=== PATIENT | male | born 1975 | race Caucasian/White ===

== ENCOUNTER 2018-11-27 19:19 | Emergency (ER) | payer MEDICAID ==
[~2018-11-27] VITALS: Ht 175.3 cm; Wt 78.0 kg
[2018-11-27 19:20] VITALS: BP 148/92
[2018-11-27 21:04] LABS: CHLORIDE 96 mEq/L (98-107)
[2018-11-27 21:08] LABS: ETHANOL BLOOD < 10 mg/dL; HEMOGLOBIN. 16.5 g/dL (14.0-18.0); MEAN CORPUSCULAR HEMOGLOBIN 31.7 pg (28.0-32.0); MEAN CORPUSCULAR VOLUME 88.4 fL (80.0-94.0); MEAN PLATELET VOLUME 7.9 fl (7.4-10.4); PLATELET 261 x1000/uL (130-400); RED CELL DISTRIBUTION WIDTH 12.9 % (11.6-14.6)
[2018-11-27 21:31] LABS: CLARITY URINE CLEAR (CLEAR); COLOR URINE YELLOW (YELLOW); KETONES URINE NEGATIVE (NEGATIVE); LEUKOCYTE ESTERASE URINE NEGATIVE (NEGATIVE); NITRITE URINE NEGATIVE (NEGATIVE); OCCULT BLOOD URINE TRACE (NEGATIVE); PROTEIN URINE NEGATIVE (NEGATIVE); SPECIFIC GRAVITY URINE 1.015 (1.005-1.030); UROBILINOGEN URINE 0.2 E.U./dL (0.2-1.0)
[2018-11-27 21:34] LABS: PLATELET ESTIMATE NORMAL
[2018-11-27 21:40] LABS: *BARBITURATES SCREEN URINE NEGATIVE (NEGATIVE); *BENZODIAZEPINES SCREEN URINE NEGATIVE (NEGATIVE); *COCAINE SCREEN URINE NEGATIVE (NEGATIVE); METHADONE URINE SCREEN NEGATIVE (NEGATIVE); OPIATES URINE SCREEN NEGATIVE (NEGATIVE); PHENCYCLIDINE URINE SCREEN NEGATIVE (NEGATIVE)
[2018-11-27 21:41] LABS: *AMPHETAMINES SCREEN URINE NEGATIVE (NEGATIVE); CANNABINOID URINE SCREEN NEGATIVE (NEGATIVE)
== END 2018-11-27 22:47 | disposition left against medical advice (07) ==
LOC: ER 20:50
DX: R25.1 Tremor, unspecified (principal); R42 Dizziness and giddiness; Z88.0 Allergy status to penicillin
CPT/HCPCS: 36415; 71045; 80305; 80320; 83880; 84484; 99284; G0480

== ENCOUNTER 2019-01-02 14:34 | Inpatient (IN) | payer MEDICAID, OTHER ==
[~2019-01-02] VITALS: Ht 172.7 cm; Wt 79.4 kg
[2019-01-02] MEDS ORDERED: LORAZEPAM 2MG/ML CPJ IV STA (15:36)
[2019-01-02] MEDS ORDERED: SODIUM CHLORIDE 0.9% 1,000 ML IV ONE (15:36)
[2019-01-02 15:55] LABS: HEMATOCRIT. 42.1 % (42.0-52.0); HEMOGLOBIN. 15.1 g/dL (14.0-18.0); MEAN CORPUSCULAR HEMOGLOBIN 32.2 pg (28.0-32.0); MEAN CORPUSCULAR VOLUME 90.2 fL (80.0-94.0); MEAN PLATELET VOLUME 7.9 fl (7.4-10.4); PLATELET 253 x1000/uL (130-400); RED BLOOD CELL COUNT 4.67 mill/uL (4.7-6.1); RED CELL DISTRIBUTION WIDTH 12.9 % (11.6-14.6)
[2019-01-02 15:59] LABS: CHLORIDE 99 mEq/L (98-107)
[2019-01-02 16:03] LABS: ETHANOL BLOOD < 10 mg/dL
[2019-01-02 16:12] LABS: CLARITY URINE CLEAR (CLEAR); COLOR URINE YELLOW (YELLOW); KETONES URINE NEGATIVE (NEGATIVE); LEUKOCYTE ESTERASE URINE NEGATIVE (NEGATIVE); NITRITE URINE NEGATIVE (NEGATIVE); OCCULT BLOOD URINE NEGATIVE (NEGATIVE); PH URINE 7.5 (4.5-8.0); PROTEIN URINE NEGATIVE (NEGATIVE); SPECIFIC GRAVITY URINE 1.013 (1.005-1.030)
[2019-01-02 16:13] LABS: PLATELET ESTIMATE NORMAL
[2019-01-02 16:25] LABS: *AMPHETAMINES SCREEN URINE NEGATIVE (NEGATIVE); *BARBITURATES SCREEN URINE NEGATIVE (NEGATIVE); *BENZODIAZEPINES SCREEN URINE NEGATIVE (NEGATIVE); *COCAINE SCREEN URINE NEGATIVE (NEGATIVE)
[2019-01-02 16:26] LABS: CANNABINOID URINE SCREEN NEGATIVE (NEGATIVE); METHADONE URINE SCREEN NEGATIVE (NEGATIVE); OPIATES URINE SCREEN NEGATIVE (NEGATIVE); PHENCYCLIDINE URINE SCREEN NEGATIVE (NEGATIVE)
[2019-01-02] MEDS ORDERED: LORAZEPAM 2MG/ML CPJ IM ONE ×2 (17:30→19:00)
[2019-01-02] MEDS ORDERED: ZIPRASIDONE MESYLATE 20MG/VIAL IM ONE (17:45)
[2019-01-02] MEDS ORDERED: DIPHENHYDRAMINE 50MG/ML VIAL IM ONE ×2 (17:45→19:00)
[2019-01-02] MEDS ORDERED: HALOPERIDOL 5MG TABLET PO ONE (19:00)
[2019-01-02] MEDS ORDERED: HALOPERIDOL LACTATE 5MG/ML VIAL IM ONE (19:15)
[2019-01-02] MEDS ORDERED: DIPHENHYDRAMINE 50MG/ML VIAL IV ONE (19:30)
[2019-01-02] MEDS ORDERED: LORAZEPAM 2MG/ML CPJ IV ONE ×4 (19:30→21:45)
[2019-01-03] MEDS ORDERED: NALOXONE HCL 1 MG/ML 2ML VIAL IV ONE (11:00)
[2019-01-03 17:24] VITALS: BP 151/86
[2019-01-03 18:00] VITALS: BP 151/86
[2019-01-03] MEDS ORDERED: LORAZEPAM 2MG/ML CPJ IV PRN (18:30)
[2019-01-03] MEDS: HALOPERIDOL LACTATE 5MG/ML VIAL IM PRN (18:34)
[2019-01-03 20:00] VITALS: BP 145/90
[2019-01-04] VITALS: BP 154/100
[2019-01-04] MEDS: HALOPERIDOL LACTATE 5MG/ML VIAL IM PRN (01:33)
[2019-01-04 04:00] VITALS: BP 150/98
[2019-01-04] MEDS: DEXT 5%/0.45% NACL 1000ML 1,000 ML IV SCH ×2 (06:47→13:10)
[2019-01-04 06:50] LABS: BASOPHILS % 0.3 % (0.0-2.0); EOSINOPHILS % 1.5 % (0.0-5.0); HEMATOCRIT. 45.5 % (42.0-52.0); HEMOGLOBIN. 16.2 g/dL (14.0-18.0); LYMPHOCYTES % 16.2 % (20.0-50.0); MEAN CORPUSCULAR VOLUME 90.1 fL (80.0-94.0); MEAN PLATELET VOLUME 8.3 fl (7.4-10.4); MONOCYTES % 5.9 % (2.0-8.0); NEUTROPHILS % 76.1 % (40.0-76.0); PLATELET 247 x1000/uL (130-400); RED BLOOD CELL COUNT 5.05 mill/uL (4.7-6.1); RED CELL DISTRIBUTION WIDTH 12.7 % (11.6-14.6)
[2019-01-04 07:08] LABS: CHLORIDE 99 mEq/L (98-107)
[2019-01-04 08:00] VITALS: BP 138/87
[2019-01-04 12:00] VITALS: BP 145/97
[2019-01-04] MEDS ORDERED: POTASSIUM CHLORIDE INJ 40 MEQ in DEXT 5% WATER 500 ML IV SCH (12:00)
[2019-01-04] MEDS ORDERED: POTASSIUM CHLORIDE 20MEQ TABLET SR PO NR ×2 (14:45→22:15)
[2019-01-04 16:00] VITALS: BP 147/96
[2019-01-04] MEDS: LEVETIRACETAM 500 MG in SODIUM CHLORIDE 0.9% 100 ML IV SCH ×2 (16:07→23:22)
[2019-01-04 20:00] VITALS: BP 127/77
[2019-01-04] MEDS ORDERED: TEMAZEPAM 15MG CAPSULE PO PRN (22:15)
[2019-01-04 23:54] LABS: CHLORIDE 103 mEq/L (98-107)
[2019-01-05] VITALS: BP 135/94
[2019-01-05 04:00] VITALS: BP 123/82
[2019-01-05 08:00] VITALS: BP 136/87
[2019-01-05] MEDS: LEVETIRACETAM 500 MG in SODIUM CHLORIDE 0.9% 100 ML IV SCH (08:50)
[2019-01-05 12:00] VITALS: BP 118/78
[2019-01-05 16:00] VITALS: BP 145/66
[2019-01-05 16:41] VITALS: BP 145/96
[2019-01-05] MEDS ORDERED: ATENOLOL 50 MG TABLET PO NR (16:45)
== END 2019-01-05 17:29 | disposition home or self-care (01) | DRG 53 ==
LOC: ER 14:34 → 6EST 01-03 11:27
PROVIDERS: ADMIT Internal Medicine; ATTEND Internal Medicine
DX: G40.909 Epilepsy, unspecified, not intractable, without status epilepticus (principal); F23 Brief psychotic disorder; I10 Essential (primary) hypertension; Z88.0 Allergy status to penicillin
CPT/HCPCS: 36415; 73080; 73200; 73590; 80048; 80305; 80307; 80320; 80329; 82140; 83735; 96372; 96374; 97116; 97162; 99285; J1200; J1630; J1953; J2060; J2310; J3480; J3486; J7030; J7040; J7050; J7060; G0480

== ENCOUNTER 2019-02-13 14:22 | Emergency (ER) | payer SELFPAY ==
[~2019-02-13] VITALS: Ht 167.6 cm; Wt 75.0 kg
[2019-02-13 14:26] VITALS: BP 150/106
[2019-02-13] MEDS ORDERED: SODIUM CHLORIDE 0.9% 1,000 ML IV ONE (15:22)
[2019-02-13] MEDS ORDERED: TETANUS, DIPHTHERIA, PERTUSSIS VAC/PF 0.5ML (>7YR OLD) IM ONE (15:30)
[2019-02-13] MEDS ORDERED: LIDOCAINE 1%/EPI 1:100,000 10 ML VIAL IJ ONE (15:30)
[2019-02-13 15:44] LABS: HEMATOCRIT. 42.1 % (42.0-52.0); HEMOGLOBIN. 14.9 g/dL (14.0-18.0); MEAN CORPUSCULAR VOLUME 90.5 fL (80.0-94.0); MEAN PLATELET VOLUME 8.2 fl (7.4-10.4); PLATELET 222 x1000/uL (130-400); RED BLOOD CELL COUNT 4.66 mill/uL (4.7-6.1)
[2019-02-13 15:49] LABS: CHLORIDE 103 mEq/L (98-107); PROTHROMBIN TIME 9.8 sec (9.6-11.0)
[2019-02-13 15:53] LABS: ETHANOL BLOOD < 10 mg/dL
[2019-02-13 16:12] LABS: CARBAMAZEPINE < 0.5 ug/mL (4-12); PHENOBARBITAL < 2.1 ug/mL (15.0-40.0)
[2019-02-13 16:55] LABS: PLATELET ESTIMATE NORMAL
[2019-02-13] MEDS ORDERED: LEVETIRACETAM 500MG PREMIX 100 ML IV ONE (17:00)
[2019-02-13] MEDS ORDERED: BACITRACIN ZINC OINT UDPKT TOP ONE (17:45)
[2019-02-13 18:23] LABS: *COCAINE SCREEN URINE NEGATIVE (NEGATIVE); METHADONE URINE SCREEN NEGATIVE (NEGATIVE); OPIATES URINE SCREEN NEGATIVE (NEGATIVE); PHENCYCLIDINE URINE SCREEN NEGATIVE (NEGATIVE)
[2019-02-13 18:25] LABS: *AMPHETAMINES SCREEN URINE NEGATIVE (NEGATIVE); *BARBITURATES SCREEN URINE NEGATIVE (NEGATIVE); *BENZODIAZEPINES SCREEN URINE NEGATIVE (NEGATIVE); CANNABINOID URINE SCREEN NEGATIVE (NEGATIVE)
== END 2019-02-13 20:56 | disposition home or self-care (01) ==
LOC: ER 14:22
DX: G40.909 Epilepsy, unspecified, not intractable, without status epilepticus (principal); S01.01XA Laceration without foreign body of scalp, initial encounter; W01.10XA Fall on same level from slipping, tripping and stumbling with subsequent striking against unspecified object, initial encounter; Y04.0XXA Assault by unarmed brawl or fight, initial encounter; Y93.89 Activity, other specified; Y92.512 Supermarket, store or market as the place of occurrence of the external cause; R03.0 Elevated blood-pressure reading, without diagnosis of hypertension; Z23 Encounter for immunization
CPT/HCPCS: 36415; 70450; 80053; 80156; 80165; 80184; 80185; 80305; 80320; 85025; 85610; 90471; 90715; 99284; J3490; J7030; G0480

== ENCOUNTER 2019-03-04 18:46 | Emergency (ER) | payer SELFPAY ==
[~2019-03-04] VITALS: Ht 172.7 cm; Wt 86.0 kg
[2019-03-04] MEDS ORDERED: LORAZEPAM 1MG TABLET PO ONE (23:45)
[2019-03-05 00:11] LABS: CLARITY URINE CLEAR (CLEAR); COLOR URINE YELLOW (YELLOW); KETONES URINE NEGATIVE (NEGATIVE); LEUKOCYTE ESTERASE URINE NEGATIVE (NEGATIVE); NITRITE URINE NEGATIVE (NEGATIVE); OCCULT BLOOD URINE NEGATIVE (NEGATIVE); PH URINE 5.5 (4.5-8.0); PROTEIN URINE NEGATIVE (NEGATIVE); SPECIFIC GRAVITY URINE 1.023 (1.005-1.030); UROBILINOGEN URINE 0.2 E.U./dL (0.2-1.0)
[2019-03-05 00:28] LABS: *AMPHETAMINES SCREEN URINE NEGATIVE (NEGATIVE); *BARBITURATES SCREEN URINE NEGATIVE (NEGATIVE); *BENZODIAZEPINES SCREEN URINE NEGATIVE (NEGATIVE); *COCAINE SCREEN URINE NEGATIVE (NEGATIVE)
[2019-03-05 00:29] LABS: CANNABINOID URINE SCREEN NEGATIVE (NEGATIVE); METHADONE URINE SCREEN NEGATIVE (NEGATIVE); OPIATES URINE SCREEN NEGATIVE (NEGATIVE); PHENCYCLIDINE URINE SCREEN NEGATIVE (NEGATIVE)
[2019-03-05 00:41] LABS: HEMATOCRIT. 44.9 % (42.0-52.0); HEMOGLOBIN. 15.7 g/dL (14.0-18.0); MEAN CORPUSCULAR HEMOGLOBIN 31.6 pg (28.0-32.0); MEAN CORPUSCULAR VOLUME 90.3 fL (80.0-94.0); MEAN PLATELET VOLUME 7.5 fl (7.4-10.4); PLATELET 266 x1000/uL (130-400); RED BLOOD CELL COUNT 4.97 mill/uL (4.7-6.1); RED CELL DISTRIBUTION WIDTH 13.2 % (11.6-14.6)
[2019-03-05 00:48] LABS: CHLORIDE 102 mEq/L (98-107)
[2019-03-05 00:51] LABS: ETHANOL BLOOD < 10 mg/dL
[2019-03-05 01:58] VITALS: BP 150/81
[2019-03-05 02:01] LABS: ATYPICAL LYMPHOCYTES 2; PLATELET ESTIMATE NORMAL
== END 2019-03-05 02:15 | disposition home or self-care (01) ==
LOC: ER 18:46
DX: R07.9 Chest pain, unspecified (principal); Z88.0 Allergy status to penicillin
CPT/HCPCS: 36415; 71045; 80305; 80320; 81003; 93005; 99284; G0480

== ENCOUNTER 2019-03-08 15:23 | Inpatient (IN) | payer SELFPAY ==
[~2019-03-08] VITALS: Ht 167.6 cm; Wt 94.4 kg
[2019-03-08] MEDS ORDERED: FOLIC ACID 1 MG, THIAMINE HCL 100 MG, MVI, ADULT NO.1 10 ML in DEXTROSE 5% WATER 1,000 ML IV ONE ×4 (17:00)
[2019-03-08] MEDS ORDERED: DIPHENHYDRAMINE 50MG/ML VIAL IM ONE ×2 (17:00→21:15)
[2019-03-08] MEDS ORDERED: OLANZAPINE 10 MG/VIAL IM ONE (17:00)
[2019-03-08] MEDS ORDERED: LORAZEPAM 2MG/ML CPJ IM PRN (17:45)
[2019-03-08 18:22] LABS: *AMPHETAMINES SCREEN URINE NEGATIVE (NEGATIVE); *BARBITURATES SCREEN URINE NEGATIVE (NEGATIVE); *BENZODIAZEPINES SCREEN URINE NEGATIVE (NEGATIVE); METHADONE URINE SCREEN NEGATIVE (NEGATIVE)
[2019-03-08 18:23] LABS: *COCAINE SCREEN URINE NEGATIVE (NEGATIVE); CANNABINOID URINE SCREEN NEGATIVE (NEGATIVE); OPIATES URINE SCREEN NEGATIVE (NEGATIVE); PHENCYCLIDINE URINE SCREEN NEGATIVE (NEGATIVE)
[2019-03-08 18:27] LABS: BASOPHILS % 0.8 % (0.0-2.0); EOSINOPHILS % 0.3 % (0.0-5.0); HEMATOCRIT. 39.8 % (42.0-52.0); HEMOGLOBIN. 14.1 g/dL (14.0-18.0); LYMPHOCYTES % 19.3 % (20.0-50.0); MEAN CORPUSCULAR VOLUME 90.1 fL (80.0-94.0); MEAN PLATELET VOLUME 7.6 fl (7.4-10.4); NEUTROPHILS % 70.6 % (40.0-76.0); PLATELET 229 x1000/uL (130-400); RED BLOOD CELL COUNT 4.42 mill/uL (4.7-6.1); RED CELL DISTRIBUTION WIDTH 13.2 % (11.6-14.6)
[2019-03-08 18:30] LABS: CHLORIDE 104 mEq/L (98-107)
[2019-03-08 18:34] LABS: ETHANOL BLOOD < 10 mg/dL
[2019-03-08] MEDS ORDERED: KCL 20MEQ/100ML PREMIX 100 ML IV NR (19:00)
[2019-03-08] MEDS ORDERED: LORAZEPAM 2MG/ML CPJ IM ONE ×2 (20:00→23:15)
[2019-03-08] MEDS ORDERED: POTASSIUM CHLORIDE INJ 30 MEQ in DEXT 5%/0.9% NACL 1,000 ML IV ONE (21:00)
[2019-03-08] MEDS ORDERED: HALOPERIDOL LACTATE 5MG/ML VIAL IM ONE (21:15)
[2019-03-08] MEDS ORDERED: LORAZEPAM 2MG/ML CPJ IV ONE (22:30)
[2019-03-09] VITALS (41 sets, daily range): BP systolic 135–174; BP diastolic 77–106
[2019-03-09] MEDS ORDERED: OLANZAPINE 10 MG/VIAL IM ONE (01:45)
[2019-03-09] MEDS ORDERED: LORAZEPAM 2MG/ML CPJ IM ONE (01:45)
[2019-03-09] MEDS ORDERED: DIPHENHYDRAMINE 50MG/ML VIAL IV ONE (02:35)
[2019-03-09] MEDS ORDERED: LORAZEPAM 2MG/ML CPJ IV ONE ×2 (02:35→07:50)
[2019-03-09] MEDS ORDERED: HALOPERIDOL LACTATE 5MG/ML VIAL IM ONE ×4 (02:35→08:05)
[2019-03-09] MEDS ORDERED: LORAZEPAM 2MG/ML CPJ ONE ×2 (02:44→08:04)
[2019-03-09] MEDS ORDERED: DIPHENHYDRAMINE 50MG/ML VIAL ONE (02:45)
[2019-03-09] MEDS ORDERED: LORAZEPAM 2MG/ML CPJ IM STA (06:57)
[2019-03-09] MEDS ORDERED: HALOPERIDOL LACTATE 5MG/ML VIAL IM STA (06:57)
[2019-03-09] MEDS ORDERED: LORAZEPAM 2MG/ML CPJ IV PRN (07:45)
[2019-03-09] MEDS ORDERED: DIPHENHYDRAMINE 50MG/ML VIAL IV PRN (07:45)
[2019-03-09] MEDS ORDERED: HALOPERIDOL LACTATE 5MG/ML VIAL IM PRN (07:45)
[2019-03-09 10:05] LABS: BASOPHILS % 0.5 % (0.0-2.0); HEMATOCRIT. 39.5 % (42.0-52.0); HEMOGLOBIN. 14.2 g/dL (14.0-18.0); LYMPHOCYTES % 15.3 % (20.0-50.0); MEAN CORPUSCULAR HEMOGLOBIN 32.6 pg (28.0-32.0); MEAN CORPUSCULAR VOLUME 90.7 fL (80.0-94.0); MEAN PLATELET VOLUME 7.7 fl (7.4-10.4); NEUTROPHILS % 75.2 % (40.0-76.0); PLATELET 215 x1000/uL (130-400); RED BLOOD CELL COUNT 4.35 mill/uL (4.7-6.1)
[2019-03-09 10:11] LABS: CHLORIDE 105 mEq/L (98-107)
[2019-03-09 10:41] LABS: CLARITY URINE CLOUDY (CLEAR); COLOR URINE YELLOW (YELLOW); KETONES URINE TRACE (NEGATIVE); LEUKOCYTE ESTERASE URINE NEGATIVE (NEGATIVE); NITRITE URINE NEGATIVE (NEGATIVE); OCCULT BLOOD URINE NEGATIVE (NEGATIVE); PH URINE 7.5 (4.5-8.0); PROTEIN URINE NEGATIVE (NEGATIVE); SPECIFIC GRAVITY URINE 1.018 (1.005-1.030)
[2019-03-09] MEDS: DEXT 5%/0.45% NACL 1000ML 1,000 ML IV SCH ×2 (10:48→17:23)
[2019-03-09] MEDS ORDERED: POTASSIUM CHLORIDE INJ 40 MEQ in DEXT 5% WATER 230 ML IV NR (12:00)
[2019-03-09 18:14] LABS: HEPATITIS B SURFACE ANTIGEN NEGATIVE
[2019-03-09 18:44] LABS: HEPATITIS A AB IGM NEGATIVE (NEGATIVE)
[2019-03-09] MEDS: DIPHENHYDRAMINE 50MG/ML VIAL IV PRN (21:32)
[2019-03-09] MEDS: HALOPERIDOL LACTATE 5MG/ML VIAL IM PRN (21:33)
[2019-03-09] MEDS: LORAZEPAM 2MG/ML CPJ IV PRN (21:34)
[2019-03-10] VITALS (78 sets, daily range): BP systolic 132–167; BP diastolic 72–101
[2019-03-10] MEDS: LORAZEPAM 2MG/ML CPJ IV PRN ×3 (02:08→21:26)
[2019-03-10] MEDS: DEXT 5%/0.45% NACL 1000ML 1,000 ML IV SCH ×3 (02:12→18:49)
[2019-03-10 05:50] LABS: BASOPHILS % 0.3 % (0.0-2.0); EOSINOPHILS % 0.8 % (0.0-5.0); HEMATOCRIT. 39.9 % (42.0-52.0); HEMOGLOBIN. 13.8 g/dL (14.0-18.0); LYMPHOCYTES % 11.7 % (20.0-50.0); MEAN CORPUSCULAR HEMOGLOBIN 31.6 pg (28.0-32.0); MEAN CORPUSCULAR VOLUME 91.3 fL (80.0-94.0); MEAN PLATELET VOLUME 8.1 fl (7.4-10.4); MONOCYTES % 5.2 % (2.0-8.0); PLATELET 210 x1000/uL (130-400); RED BLOOD CELL COUNT 4.37 mill/uL (4.7-6.1); RED CELL DISTRIBUTION WIDTH 13.1 % (11.6-14.6)
[2019-03-10 05:57] LABS: CHLORIDE 101 mEq/L (98-107)
[2019-03-10] MEDS: HALOPERIDOL LACTATE 5MG/ML VIAL IM PRN (06:11)
[2019-03-10] MEDS: DIPHENHYDRAMINE 50MG/ML VIAL IV PRN (06:11)
[2019-03-10] MEDS ORDERED: POTASSIUM CHLORIDE INJ 40 MEQ in DEXT 5% WATER 250 ML IV SCH (10:00)
[2019-03-10] MEDS: QUETIAPINE FUMARATE 50MG TABLET PO SCH ×2 (15:24→21:09)
[2019-03-10] MEDS: NICOTINE 14MG PATCH TD SCH (15:48)
[2019-03-10] MEDS: AMLODIPINE 5MG TABLET PO SCH (15:48)
[2019-03-10] MEDS: ENOXAPARIN 30MG/0.3ML SYR SUBCUT SCH (21:09)
[2019-03-11] VITALS (25 sets, daily range): BP systolic 123–164; BP diastolic 58–98
[2019-03-11] MEDS: DEXT 5%/0.45% NACL 1000ML 1,000 ML IV SCH ×3 (03:22→18:28)
[2019-03-11 06:35] LABS: BASOPHILS % 0.3 % (0.0-2.0); EOSINOPHILS % 1.7 % (0.0-5.0); HEMATOCRIT. 40.7 % (42.0-52.0); HEMOGLOBIN. 14.3 g/dL (14.0-18.0); LYMPHOCYTES % 10.9 % (20.0-50.0); MEAN CORPUSCULAR HEMOGLOBIN 32.1 pg (28.0-32.0); MEAN CORPUSCULAR VOLUME 91.3 fL (80.0-94.0); MEAN PLATELET VOLUME 8.4 fl (7.4-10.4); MONOCYTES % 6.8 % (2.0-8.0); NEUTROPHILS % 80.3 % (40.0-76.0); PLATELET 187 x1000/uL (130-400); RED BLOOD CELL COUNT 4.46 mill/uL (4.7-6.1); RED CELL DISTRIBUTION WIDTH 13.1 % (11.6-14.6)
[2019-03-11 06:39] LABS: CHLORIDE 101 mEq/L (98-107)
[2019-03-11] MEDS: NICOTINE 14MG PATCH TD SCH (08:17)
[2019-03-11] MEDS: AMLODIPINE 5MG TABLET PO SCH (08:18)
[2019-03-11] MEDS: QUETIAPINE FUMARATE 50MG TABLET PO SCH ×2 (08:18→21:21)
[2019-03-11] MEDS: ENOXAPARIN 30MG/0.3ML SYR SUBCUT SCH ×2 (08:18→21:22)
[2019-03-11] MEDS: LORAZEPAM 2MG/ML CPJ IV PRN ×2 (11:53→21:29)
[2019-03-11] MEDS: HALOPERIDOL LACTATE 5MG/ML VIAL IM PRN (16:34)
[2019-03-11] MEDS: CEFTRIAXONE 1 G PREMIX 50 ML IV SCH (18:28)
[2019-03-12] VITALS: BP 151/81
[2019-03-12] MEDS: HALOPERIDOL LACTATE 5MG/ML VIAL IM PRN ×2 (02:10→23:50)
[2019-03-12] MEDS: DEXT 5%/0.45% NACL 1000ML 1,000 ML IV SCH ×3 (02:45→18:46)
[2019-03-12 04:00] VITALS: BP 125/92
[2019-03-12] MEDS: LORAZEPAM 2MG/ML CPJ IV PRN (04:07)
[2019-03-12] MEDS: DIPHENHYDRAMINE 50MG/ML VIAL IV PRN (04:10)
[2019-03-12 08:00] VITALS: BP 128/55
[2019-03-12] MEDS: NICOTINE 14MG PATCH TD SCH (09:52)
[2019-03-12] MEDS: ENOXAPARIN 30MG/0.3ML SYR SUBCUT SCH ×2 (09:53→21:48)
[2019-03-12] MEDS: QUETIAPINE FUMARATE 50MG TABLET PO SCH ×2 (09:53→21:47)
[2019-03-12] MEDS: AMLODIPINE 5MG TABLET PO SCH (09:53)
[2019-03-12 13:28] LABS: CLARITY URINE CLOUDY (CLEAR); COLOR URINE YELLOW (YELLOW); KETONES URINE NEGATIVE (NEGATIVE); LEUKOCYTE ESTERASE URINE TRACE (NEGATIVE); NITRITE URINE NEGATIVE (NEGATIVE); OCCULT BLOOD URINE NEGATIVE (NEGATIVE); PH URINE 7.5 (4.5-8.0); PROTEIN URINE NEGATIVE (NEGATIVE); SPECIFIC GRAVITY URINE 1.014 (1.005-1.030)
[2019-03-12 17:35] VITALS: BP 148/97
[2019-03-12] MEDS: CEFTRIAXONE 1 G PREMIX 50 ML IV SCH (18:40)
[2019-03-12 20:00] VITALS: BP 139/86
[2019-03-13] VITALS: BP 111/79
[2019-03-13 04:00] VITALS: BP 126/84
[2019-03-13] MEDS: DEXT 5%/0.45% NACL 1000ML 1,000 ML IV SCH (05:31)
[2019-03-13 07:04] LABS: HEMATOCRIT. 42.4 % (42.0-52.0); HEMOGLOBIN. 15.6 g/dL (14.0-18.0); MEAN CORPUSCULAR HEMOGLOBIN 32.8 pg (28.0-32.0); MEAN CORPUSCULAR VOLUME 89.4 fL (80.0-94.0); MEAN PLATELET VOLUME 8.5 fl (7.4-10.4); PLATELET 265 x1000/uL (130-400); RED BLOOD CELL COUNT 4.75 mill/uL (4.7-6.1); RED CELL DISTRIBUTION WIDTH 12.9 % (11.6-14.6)
[2019-03-13 07:06] LABS: CHLORIDE 101 mEq/L (98-107)
[2019-03-13 08:00] VITALS: BP 114/84
[2019-03-13] MEDS: NICOTINE 14MG PATCH TD SCH (09:00)
[2019-03-13] MEDS: QUETIAPINE FUMARATE 50MG TABLET PO SCH ×2 (10:12→21:57)
[2019-03-13] MEDS: AMLODIPINE 5MG TABLET PO SCH (10:12)
[2019-03-13] MEDS: ENOXAPARIN 30MG/0.3ML SYR SUBCUT SCH ×2 (10:14→21:59)
[2019-03-13 12:00] VITALS: BP 120/69
[2019-03-13] MEDS: LEVETIRACETAM 500MG TABLET PO SCH ×2 (13:04→21:57)
[2019-03-13] MEDS: HALOPERIDOL LACTATE 5MG/ML VIAL IM PRN (15:57)
[2019-03-13 16:00] VITALS: BP 126/89
[2019-03-13] MEDS: CEFTRIAXONE 1 G PREMIX 50 ML IV SCH (18:27)
[2019-03-13 20:00] VITALS: BP 129/82
[2019-03-13] MEDS: LORAZEPAM 2MG/ML CPJ IV PRN (22:15)
[2019-03-14] VITALS: BP 134/90
[2019-03-14] MEDS: HALOPERIDOL LACTATE 5MG/ML VIAL IM PRN (02:46)
[2019-03-14 04:00] VITALS: BP 120/87
[2019-03-14 08:01] VITALS: BP 122/81
[2019-03-14] MEDS: AMLODIPINE 5MG TABLET PO SCH (08:50)
[2019-03-14] MEDS: LEVETIRACETAM 500MG TABLET PO SCH ×2 (08:50→20:17)
[2019-03-14] MEDS: QUETIAPINE FUMARATE 50MG TABLET PO SCH ×2 (08:50→20:17)
[2019-03-14] MEDS: NICOTINE 14MG PATCH TD SCH (08:51)
[2019-03-14] MEDS: ENOXAPARIN 30MG/0.3ML SYR SUBCUT SCH ×2 (08:51→20:17)
[2019-03-14 11:08] LABS: PLATELET ESTIMATE NORMAL
[2019-03-14 12:00] VITALS: BP 104/75
[2019-03-14 16:00] VITALS: BP 134/89
[2019-03-14] MEDS: CEFTRIAXONE 1 G PREMIX 50 ML IV SCH (19:47)
[2019-03-14 20:00] VITALS: BP 137/88
[2019-03-15] VITALS: BP 131/74
[2019-03-15] MEDS: HALOPERIDOL LACTATE 5MG/ML VIAL IM PRN (00:56)
[2019-03-15 04:00] VITALS: BP 144/79
[2019-03-15] MEDS: LEVETIRACETAM 500MG TABLET PO SCH (09:06)
[2019-03-15] MEDS: AMLODIPINE 5MG TABLET PO SCH (09:06)
[2019-03-15] MEDS: ENOXAPARIN 30MG/0.3ML SYR SUBCUT SCH (09:06)
[2019-03-15] MEDS: QUETIAPINE FUMARATE 50MG TABLET PO SCH (09:06)
[2019-03-15] MEDS: NICOTINE 14MG PATCH TD SCH (09:23)
[2019-03-15 12:03] VITALS: BP 118/70
[2019-03-15 16:00] VITALS: BP 145/100
[2019-03-15 16:56] VITALS: BP 85/54
== END 2019-03-15 17:30 | disposition home or self-care (01) | DRG 720 ==
LOC: ER 15:23 → 5WST 19:20 → EDBEDREQ 19:48 → EDBEDREQTM 19:48 → EDBEDREQSVC 19:49 → ENRESERV 03-09 06:02 → EDBEDREQ 03-09 07:35 → ENRESERV 03-09 07:55 → CANRESERV 03-09 08:10 → CVICU 03-09 08:33 → 6EST 03-11 12:49
PROVIDERS: ADMIT Internal Medicine; ATTEND Internal Medicine
DX: A41.9 Sepsis, unspecified organism (principal); G92 Toxic encephalopathy; E11.9 Type 2 diabetes mellitus without complications; E87.6 Hypokalemia; F29 Unspecified psychosis not due to a substance or known physiological condition; R74.0 Nonspecific elevation of levels of transaminase and lactic acid dehydrogenase [LDH]; G40.909 Epilepsy, unspecified, not intractable, without status epilepticus; Z88.0 Allergy status to penicillin; Z78.1 Physical restraint status; Z79.899 Other long term (current) drug therapy
CPT/HCPCS: 36415; 71045; 80048; 80076; 80305; 80307; 80320; 80329; 81003; 82140; 83036; 84145; 86705; 86709; 86803; 87340; 99285; J0696; J1200; J1630; J1650; J2060; J3411; J3480; J3490; J7042; J7060; J7070; G0480

== ENCOUNTER 2019-08-09 23:49 | Emergency (ER) | payer MEDICAID ==
[~2019-08-09] VITALS: Ht 175.3 cm; Wt 91.0 kg
[2019-08-10 00:11] VITALS: BP 142/85
== END 2019-08-10 09:27 | disposition left against medical advice (07) ==
LOC: ER 23:49
DX: Z53.21 Procedure and treatment not carried out due to patient leaving prior to being seen by health care provider (principal); R07.2 Precordial pain